=== PATIENT | female | born 1995 | race African-American/Black ===

== ENCOUNTER 2017-09-15 17:14 | Emergency (ER) | payer MEDICAID ==
[~2017-09-15] VITALS: Ht 165.1 cm; Wt 85.0 kg
[2017-09-15] MEDS ORDERED: ALBU8HFA4 IH (17:36)
[2017-09-15] MEDS ORDERED: IBUPROFEN 800 MG TABLET PO ONE (19:15)
[2017-09-15 19:32] VITALS: BP 127/66
== END 2017-09-15 19:40 | disposition home or self-care (01) ==
LOC: EMS 17:15
DX: S60.862A Insect bite (nonvenomous) of left wrist, initial encounter (principal); L03.114 Cellulitis of left upper limb; J45.909 Unspecified asthma, uncomplicated; W57.XXXA Bitten or stung by nonvenomous insect and other nonvenomous arthropods, initial encounter; Y93.89 Activity, other specified; Y92.89 Other specified places as the place of occurrence of the external cause; Y99.8 Other external cause status
CPT/HCPCS: 99283